=== PATIENT | male | born 1955 | race Hispanic/Latino ===

== ENCOUNTER 2019-02-08 13:17 | Emergency (ER) | payer OTHER ==
[2019-02-08 13:45] LABS: #Basophils 0.1 thou/uL (0.0-0.2); #Eosinphils 0.2 thou/uL (0.0-0.7); #Lymphocytes 2.2 thou/uL (1.20-3.40); #Neutrophils 7.4 thou/uL (1.40-6.50); %Basophils 0.5 % (0.0-1.0); %Eosinophils 1.5 % (0.0-10.0); %Lymphocytes 20.3 % (21.0-51.0); %Monocytes 9.3 % (0.0-10.0); %Neutrophils 68.4 % (42.0-75.0); Hemoglobin 14.9 g/dL (14.0-18.0); Mean Corpuscular Hemoglobin 31.7 pg (27.0-31.0); Mean Corpuscular Volume 90.7 fL (78.0-98.0); Platelet Count 274 thou/uL (130-400); RBC Distribution Width 12.4 % (11.5-14.5); Red Blood Cell (RBC) Count 4.68 mill/uL (4.70-6.10); White Blood Cell (WBC) Count 10.8 thou/uL (4.8-10.8)
[2019-02-08 14:06] LABS: ALT (SGPT) 22 U/L (8-55); AST (SGOT) 26 U/L (5-34); Albumin 4.3 g/dL (3.4-4.8); Alkaline Phosphatase 76 U/L (40-150); Anion Gap 21 mmol/L (10-20); BUN (Urea Nitrogen) 45 mg/dL (8.4-25.7); Bilirubin, Total 0.7 mg/dL (0.2-1.2); CK (CPK) 466 U/L (30-200); Calc. Creatinine Clearance 0 mL/min (70-130); Calcium 8.7 mg/dL (7.8-10.44); Carbon Dioxide 22 mmol/L (23-31); Chloride 96 mmol/L (98-107); Estimated GFR-MDRD 18; Globulin 3.1 g/dL (2.4-3.5); Glucose 97 mg/dL (80-115); Lipase 41 U/L (8-78); Potassium 4.1 mmol/L (3.5-5.1); Protein, Total 7.4 g/dL (5.8-8.1); Sodium 135 mmol/L (136-145)
--- NOTE | 2019-02-08 14:08 | RAD ---
EXAM: Single view of the chest HISTORY: Chest pain COMPARISON: None FINDINGS: Single view of the chest shows a normal sized cardiomediastinal silhouette. There is no alisha dence of consolidation, mass, or pleural effusion. The bones are unremarkable. IMPRESSION: No evidence of acute cardiopulmonary disease
[2019-02-08 14:27] LABS: CKMB 3.7 ng/mL (0-6.6)
[2019-02-08] MEDS ORDERED: Aspirin Chewable 81 MG TAB ONE (15:34)
[2019-02-08] MEDS ORDERED: Enoxaparin Sodium 120 MG/0.8 ML SYRINGE SC SCH (15:45)
--- NOTE | 2019-02-09 12:56 | EKG ---
Test Reason : CHEST PAIN Blood Pressure : / mmHG Vent. Rate : 060 BPM Atrial Rate : 060 BPM P-R Int : 158 ms QRS Dur : 076 ms QT Int : 450 ms P-R-T Axes : 051 044 031 degrees QTc Int : 450 ms Normal sinus rhythm Normal ECG Confirmed by AXEL MESSINA, MI ([id number]), acquisition editor WILD BYNUM ([id number]) on 02/09/2019 12:56:25 PM Referred By: AXEL Confirmed By:MI REYNA MD
== END 2019-02-08 19:06 | disposition short-term general hospital (02) ==
LOC: ERS 13:17
DX: N17.9 Acute kidney failure, unspecified (principal); I21.4 Non-ST elevation (NSTEMI) myocardial infarction; I10 Essential (primary) hypertension; Z79.899 Other long term (current) drug therapy
CPT/HCPCS: 36415; 71045; 80053; 82550; 82553; 83690; 83880; 84484; 85025; 85379; 93005; 96360; 96372; J1650